=== PATIENT | male | born 2000 | race Caucasian/White ===

== ENCOUNTER 2022-11-28 13:26 | Emergency (ER) | payer OTHER, BC, MEDICAID ==
[2022-11-28] MEDS ORDERED: Bacitracin Oint 1 GM U/D Packet TOP ONE (13:35)
[2022-11-28] MEDS ORDERED: Lidocaine 1% 5 ML VIAL INJECT ONE (13:35)
[2022-11-28] MEDS ORDERED: Diphtheria,Pertussis(Acell),Tetanus Vaccine 0.5 ML Syringe IM ONE (13:35)
[2022-11-28] MEDS ORDERED: ceFAZolin 1 GM Vial IM ONE (14:13)
== END 2022-11-28 16:14 | disposition home or self-care (01) ==
LOC: JP.ED 13:26
DX: S61.211A Laceration without foreign body of left index finger without damage to nail, initial encounter (principal); Z72.0 Tobacco use; Z23 Encounter for immunization; W26.8XXA Contact with other sharp object(s), not elsewhere classified, initial encounter
CPT/HCPCS: 12001; 90471; 99283